=== PATIENT | female | born 1945 | race Hispanic/Latino ===

== ENCOUNTER 2018-11-02 05:43 | Day surgery (SDC) | payer MEDICARE ==
[~2018-11-02] VITALS: Ht 149.9 cm; Wt 64.8 kg
[2018-11-02] MEDS ORDERED: SODIUM CHLORIDE 0.9% 1000ML 1,000 ML IV ONE (05:59)
[2018-11-02] MEDS ORDERED: AMIT25TA9 PO (07:24)
[2018-11-02] MEDS ORDERED: EZET10TA48 PO (07:24)
[2018-11-02] MEDS ORDERED: LIOT5TAB8 PO (07:24)
[2018-11-02] MEDS ORDERED: ROSU40TA20 PO (07:24)
[2018-11-02] MEDS ORDERED: PIOG15TA66 PO (07:24)
[2018-11-02] MEDS ORDERED: ASPI-555 PO (07:24)
[2018-11-02] MEDS ORDERED: METO50TA18 PO (07:24)
[2018-11-02] MEDS ORDERED: METF-446 PO (07:24)
[2018-11-02] MEDS ORDERED: VIT D2 (07:24)
[2018-11-02] MEDS ORDERED: PROAIR (07:24)
[2018-11-02] MEDS ORDERED: MAGN400T25 PO (07:24)
[2018-11-02] MEDS ORDERED: VALS1TAB79 PO (07:24)
[2018-11-02] MEDS ORDERED: GABA-531 PO (07:24)
[2018-11-02] MEDS ORDERED: PANT40TA25 PO (07:24)
[2018-11-02] MEDS ORDERED: VICTOZA PO (07:24)
[2018-11-02 07:27] VITALS: BP 128/54
[2018-11-02] MEDS ORDERED: PROPOFOL 10 MG/ML 20ML VIAL IV ONE ×2 (08:06→08:29)
[2018-11-02] MEDS ORDERED: LIDOCAINE HCL 1% 20 ML VIAL ONE (08:07)
[2018-11-02] MEDS ORDERED: EPHEDRINE SULFATE 50 MG/ML AMPULE ONE (08:27)
[2018-11-02 08:34] VITALS: BP 109/55
[2018-11-02 08:38] VITALS: BP 109/55
[2018-11-02 08:44] VITALS: BP 103/55
[2018-11-02 08:49] VITALS: BP 109/61
[2018-11-02 08:57] VITALS: BP 130/67
== END 2018-11-02 09:15 | disposition home or self-care (01) ==
LOC: DAH 05:43
PROVIDERS: ATTEND Internal Medicine Gastroenterology
DX: Z12.11 Encounter for screening for malignant neoplasm of colon (principal); K64.1 Second degree hemorrhoids; K57.30 Diverticulosis of large intestine without perforation or abscess without bleeding; K29.50 Unspecified chronic gastritis without bleeding; I11.0 Hypertensive heart disease with heart failure; I50.9 Heart failure, unspecified; J44.9 Chronic obstructive pulmonary disease, unspecified; I25.10 Atherosclerotic heart disease of native coronary artery without angina pectoris; E03.9 Hypothyroidism, unspecified; E11.9 Type 2 diabetes mellitus without complications; M19.90 Unspecified osteoarthritis, unspecified site; Z98.890 Other specified postprocedural states; Z95.5 Presence of coronary angioplasty implant and graft; Z68.30 Body mass index [BMI] 30.0-30.9, adult; Z79.899 Other long term (current) drug therapy; E78.2 Mixed hyperlipidemia
CPT/HCPCS: 43239; 45378; 82948; 88305; 93005; A4606; J2704; J3490; J7030

== ENCOUNTER → 2018-11-23 | Outpatient (CLI) | payer MEDICARE ==
[~2018-11-23] MED LIST: AMIT25TA9 PO; ASPI-555 PO; EZET10TA48 PO; GABA-531 PO; LIOT5TAB9 PO; MAGN400T25 PO; METF-446 PO; METO50TA18 PO; PANT40TA25 PO; PIOG15TA66 PO; PROAIR; ROSU40TA21 PO; VALS1TAB79 PO; VICTOZA PO; VIT D2
--- NOTE | 2018-11-23 12:53 | NUR ---
MBSS COMPLETE. -S/S OF ASPIRATION. RECOMMEND REGULAR, THIN LIQUID DIET; PILLS WHOLE WITH LIQUIDS. PATIENT INFORMATION: Pt IS A 73 Y.O. FEMALE REFERRED FOR AN MBSS. Pt AAOX3 AND SERVED THE PRIMARY INFORMANT FOR MEDICAL AND SOCIAL HISTORY. Pt DESCRIBES SWALLOWING DIFFICULTY FOOD GETTING STUCK POINTING TO THE LEVEL OF THE ESOPHAGUS. Pt DESCRIBED BOLUS SENSATION. Pt HAS A PAST MEDICAL HISTORY SIGNIFICANT FOR CHOLECYSTECTOMY, CABG (2011), HEART STENTS, ANXIETY, HEART MURMUR, HEART FAILURE, CAD, HEARING AIDS, HYPERLIPIDEMIA, HYPERTENSION, ASTHMA, COPD, ARTHRITIS, DM. MBSS INTERPRETATION: SWALLOW FUNCTION AND EFFICIENCY WITHIN FUNCTIONAL LIMITS. ORAL MOTOR STRENGTH, COORDINATION, AND ROM WITHIN FUNCTIONAL LIMITS. LARYNGEAL ELEVATION/EXCURSION STRONG WITH TIMELY PHARYNGEAL RESPONSE. NO OVERT SIGNS OR SYMPTOMS OF ASPIRATION PRESENT DURING MBSS. A-P VIEW: UNREMARKABLE. BOLUS TRANSIT TIME OF 10 SECONDS WITH NO STASIS OF BOLUS IN ESOPHAGUS. MINIMAL RESIDUE NOTED IN MID 1/3 OF ESOPHAGUS CLEARED WITH LIQUID WASH. PLEASE NOTE THAT Pt COMPLAINED OF BOLUS SENSATION DURING TRIALS. TRIALS: 1. TSP PUREED: GOOD 2. TSP PUDDING: GOOD 3. TSP MIXED: GOOD 4. CUP SIP THIN LIQUIDS: GOOD 5. A-P PUDDING: GOOD 6. A-P THIN LIQUIDS: GOOD RECOMMENDATIONS: 1. REGULAR TEXTURE, THIN LIQUID DIET; PILLS WHOLE WITH LIQUIDS. 2. COMPENSATORY STRATEGIES (PROPHYLAXIS): *SEATED AT 90 DEGREE ANGLE *ALTERNATE BITES AND SIPS *REMAIN UPRIGHT 30 MINUTES AFTER MEAL TIMES G-CODES SWALLOWING: [id number] Addendum: 11/23/18 at 1258 by PADMA HSU Amended: Links added.
== END | disposition home or self-care (01) ==
LOC: RAH 10:40
PROVIDERS: ATTEND Internal Medicine Gastroenterology
DX: R13.12 Dysphagia, oropharyngeal phase (principal); R63.3 Feeding difficulties; I25.10 Atherosclerotic heart disease of native coronary artery without angina pectoris; E78.5 Hyperlipidemia, unspecified; I11.0 Hypertensive heart disease with heart failure; I50.9 Heart failure, unspecified; J45.909 Unspecified asthma, uncomplicated; J44.9 Chronic obstructive pulmonary disease, unspecified; E11.9 Type 2 diabetes mellitus without complications
CPT/HCPCS: G8996; G8997; G8998; 74230; 92611

== ENCOUNTER → 2021-09-27 | Outpatient (CLI) | payer MEDICARE ==
[~2021-09-27] MED LIST changes: -ASPI-555 PO; +ASPI-556 PO; +LIOT5TAB11 PO; -LIOT5TAB9 PO; -PANT40TA25 PO; +PANT40TA54 PO; -VALS1TAB79 PO; +VALS1TAB80 PO
== END | disposition home or self-care (01) ==
LOC: RAH 10:31
PROVIDERS: ATTEND Family Medicine
DX: S09.90XA Unspecified injury of head, initial encounter (principal); I67.82 Cerebral ischemia; R42 Dizziness and giddiness; R90.82 White matter disease, unspecified; M54.81 Occipital neuralgia; H53.9 Unspecified visual disturbance
CPT/HCPCS: 70551

== ENCOUNTER 2022-07-01 05:52 | Observation (INO) | payer MEDICARE ==
[2022-06-30 10:29] LABS: BASOPHILS % (AUTO) 0.7 % (0.0-5.0); HEMATOCRIT 40.7 % (36-48); LYMPHOCYTES % (AUTO) 37.5 % (21.0-51.0); MEAN CORPUSCULAR HEMOGLOBIN 26.8 pg (27.0-33.0); MEAN CORPUSCULAR VOLUME 86.4 fL (79-99); MONOCYTES % (AUTO) 8.7 % (3.0-13.0); NEUTROPHILS % (AUTO) 51.8 % (40.0-77.0); PLATELET COUNT (AUTO) 165 K/uL (130-400); RED BLOOD CELL COUNT(AUTO) 4.71 MIL/uL (4.00-5.50); RED CELL DISTRIBUTION WIDTH 16.8 % (11.0-15.5)
[2022-06-30 10:37] LABS: CREATININE 0.7 mg/dL (0.5-1.5); POTASSIUM 3.4 mmol/L (3.5-5.1)
[2022-06-30 10:42] LABS: INR 1.05 (0.85-1.15); PROTHROMBIN TIME 11.4 SEC (9.6-11.6)
[2022-06-30 10:44] LABS: PARTIAL THROMBOPLASTIN TIME 30.6 SEC (26.3-35.5)
[2022-06-30 12:48] LABS: LYMPHOCYTES % (MANUAL) 29 % (22-44); MAN.DIFF COMMENT-IMPRESSION MANUAL DIFFERENTIAL; MONOCYTES % (MANUAL) 4 % (2-9); PLATELET MORPHOLOGY COMMENT ADEQUATE; SEGMENTED NEUTROPHILS % 67 % (40-70)
[2022-06-30 15:02] VITALS: BP 144/69
[2022-07-01] VITALS (24 sets, daily range): BP systolic 90–123; BP diastolic 48–77
[~2022-07-01] VITALS: Ht 149.9 cm; Wt 66.8 kg
[~2022-07-01 05:52] MED LIST changes: -AMIT25TA9 PO; -GABA-531 PO; +LACTATED RINGERS 1000ML 1,000 ML IV SCH; -MAGN400T25 PO; +NIAC-48 PO; -PANT40TA54 PO; -PIOG15TA66 PO; +PIOG45TA64 PO; -PROAIR; +ROPI0.257 PO; -VALS1TAB80 PO; +VALS1TAB81 PO; -VICTOZA PO; -VIT D2; +victoza SQ; +vitamin d PO
[2022-07-01] MEDS ORDERED: CEFAZOLIN SODIUM 1 GM VIAL IVPB SCH (06:00)
[2022-07-01] MEDS ORDERED: 0.9%NACL 1000ML 1,000 ML IV ONE (06:29)
[2022-07-01] MEDS ORDERED: LIDOCAINE PF 100MG/5ML (2%) SYRINGE 5ML ONE (07:09)
[2022-07-01] MEDS ORDERED: ROCURONIUM 10MG/1ML SYR 10 MG/ML ML ONE (07:10)
[2022-07-01] MEDS ORDERED: PROPOFOL 10 MG/ML 20ML VIAL IV ONE (07:10)
[2022-07-01] MEDS ORDERED: MIDAZOLAM HCL 1 MG/ML 2ML VIAL ONE (07:10)
[2022-07-01] MEDS ORDERED: FENTANYL CITRATE PF 50 MCG/1 ML 2ML VIAL ONE ×2 (07:10→08:06)
[2022-07-01] MEDS ORDERED: DEXAMETHASONE SOD PHOSPHATE 10MG/ML 1ML VIAL ONE (07:33)
[2022-07-01] MEDS ORDERED: ONDANSETRON 4MG INJ ONE (07:33)
[2022-07-01] MEDS ORDERED: CEFAZOLIN SODIUM 2 GM VIAL IVPB ONE (07:38)
[2022-07-01] MEDS ORDERED: EPHEDRINE SULFATE 50 MG/ML AMPULE ONE (07:40)
[2022-07-01] MEDS ORDERED: ROPIVICAINE 250MG+KETOROLAC 15MG+EPINEPHRINE 0.3+CLONIDINE 80 IV PRN ×5 (08:00)
[2022-07-01] MEDS ORDERED: KETOROLAC 30MG VIAL (30MG/ML) ONE (08:34)
[2022-07-01] MEDS ORDERED: NON-FORMULARY MEDICATION 1 EACH (Metformin HCl 1,000 MG) PO SCH (09:00)
[2022-07-01] MEDS: LOSARTAN/HYDROCHLOROTHIAZIDE 50-12.5MG TABLET PO SCH (09:00)
[2022-07-01] MEDS: PIOGLITAZONE 45MG TAB PO SCH (09:00)
[2022-07-01] MEDS: METOPROLOL TARTRATE 50 MG TAB PO SCH (09:00)
[2022-07-01] MEDS: VICTOZA 1.8 MG SQ SCH (09:00)
[2022-07-01] MEDS: EZETIMIBE 10 MG TAB PO SCH (09:00)
[2022-07-01] MEDS: LIOTHYRONINE SODIUM 5 MCG PO SCH (09:00)
[2022-07-01] MEDS ORDERED: POTASSIUM CHLORIDE 20MEQ/100ML 100 ML IV PRN (09:30)
[2022-07-01] MEDS ORDERED: KCL 20 MEQ ERTAB PO PRN (09:30)
[2022-07-01] MEDS ORDERED: MORPHINE 4 MG SYG IVP PRN (09:30)
[2022-07-01] MEDS ORDERED: ONDANSETRON 4MG INJ IVP PRN (09:30)
[2022-07-01] MEDS ORDERED: LIDOCAINE HCL-MPF 1% 2ML VIAL IV PRN (09:30)
[2022-07-01] MEDS ORDERED: POTASSIUM CHLORIDE 10% ELIXIR 20 MEQ/15 ML UDCUP PO PRN (09:30)
[2022-07-01] MEDS: ACETAMINOPHEN 1,000 MG/100 ML VIAL IV SCH ×2 (09:58→17:36)
[2022-07-01] MEDS: 0.9%NACL 1000ML 1,000 ML IV SCH ×2 (10:57→19:30)
[2022-07-01] MEDS: INSULIN HUMULIN R 100 UNIT/ML 3ML SQ SCH ×3 (11:00→20:56)
[2022-07-01] MEDS ORDERED: IBUPROFEN 800MG + NS 250ML IV SCH (12:30)
[2022-07-01] MEDS: CALDOLOR 800MG+NS 250ML 250 ML IV SCH ×2 (12:39→20:57)
[2022-07-01] MEDS: CEFAZOLIN SODIUM 1 GM VIAL IVP SCH ×2 (14:41→22:29)
[2022-07-01] MEDS: METFORMIN HCL 500 MG TABLET PO SCH (17:36)
[2022-07-01] MEDS: ASPIRIN 81 MG EC TAB PO SCH (17:36)
[2022-07-01] MEDS: ROPINIROLE HCL 0.25 MG TABLET PO SCH (20:56)
[2022-07-01] MEDS: FAMOTIDINE 20MG TAB PO SCH (20:56)
[2022-07-01] MEDS: NIACIN 500 MG SRTAB PO SCH (21:00)
[2022-07-02] VITALS (7 sets, daily range): BP systolic 93–143; BP diastolic 41–67
[2022-07-02] MEDS: ACETAMINOPHEN 1,000 MG/100 ML VIAL IV SCH (00:20)
[2022-07-02] MEDS: CALDOLOR 800MG+NS 250ML 250 ML IV SCH (05:21)
[2022-07-02] MEDS: 0.9%NACL 1000ML 1,000 ML IV SCH (05:30)
[2022-07-02 05:50] LABS: CREATININE 0.8 mg/dL (0.5-1.5)
[2022-07-02] MEDS: INSULIN HUMULIN R 100 UNIT/ML 3ML SQ SCH ×4 (06:50→21:00)
[2022-07-02] MEDS: HYDROCODONE/ACETAMINOPHEN 10/325 MG TAB PO PRN ×3 (06:52→18:03)
[2022-07-02 07:33] LABS: HEMATOCRIT 28.6 % (36-48); MEAN CORPUSCULAR HEMOGLOBIN 26.7 pg (27.0-33.0); MEAN CORPUSCULAR HGB CONC 30.8 g/dL (32.0-36.0); MEAN CORPUSCULAR VOLUME 86.9 fL (79-99); RED BLOOD CELL COUNT(AUTO) 3.29 MIL/uL (4.00-5.50); RED CELL DISTRIBUTION WIDTH 17.2 % (11.0-15.5); WHITE BLOOD COUNT (AUTO) 5.4 K/uL (4.8-10.8)
[2022-07-02] MEDS: LIOTHYRONINE SODIUM 5 MCG PO SCH (08:00)
[2022-07-02] MEDS: VICTOZA 1.8 MG SQ SCH (08:00)
[2022-07-02] MEDS: LOSARTAN/HYDROCHLOROTHIAZIDE 50-12.5MG TABLET PO SCH (08:58)
[2022-07-02] MEDS: EZETIMIBE 10 MG TAB PO SCH (08:59)
[2022-07-02] MEDS: METOPROLOL TARTRATE 50 MG TAB PO SCH (09:00)
[2022-07-02] MEDS: PIOGLITAZONE 45MG TAB PO SCH ×2 (09:00→15:51)
[2022-07-02] MEDS: POLYETHYLENE GLYCOL 3350 17 GM POWD.PACK PO SCH (09:02)
[2022-07-02] MEDS: METFORMIN HCL 500 MG TABLET PO SCH ×2 (09:02→18:00)
[2022-07-02] MEDS: FAMOTIDINE 20MG TAB PO SCH ×2 (09:02→21:03)
[2022-07-02] MEDS: ASPIRIN 81 MG EC TAB PO SCH ×2 (09:03→18:00)
[2022-07-02] MEDS: FERROUS GLUCONATE 324 TABLET PO SCH ×2 (12:56→21:03)
[2022-07-02] MEDS ORDERED: FERROUS GLUCONATE 324 TABLET PO SCH (21:00)
[2022-07-02] MEDS: NIACIN 500 MG SRTAB PO SCH (21:03)
[2022-07-02] MEDS: ROPINIROLE HCL 0.25 MG TABLET PO SCH (21:03)
[2022-07-03] VITALS: BP 138/60
[2022-07-03] MEDS: HYDROCODONE/ACETAMINOPHEN 10/325 MG TAB PO PRN (03:32)
[2022-07-03 04:00] VITALS: BP 142/82
[2022-07-03] MEDS: INSULIN HUMULIN R 100 UNIT/ML 3ML SQ SCH ×3 (05:22→16:03)
[2022-07-03] MEDS: HYDROCODONE/ACETAMINOPHEN 5/325 MG TAB PO PRN ×2 (07:30→13:49)
[2022-07-03 08:00] VITALS: BP 122/53
[2022-07-03] MEDS: FERROUS GLUCONATE 324 TABLET PO SCH (08:44)
[2022-07-03] MEDS: FAMOTIDINE 20MG TAB PO SCH (08:45)
[2022-07-03] MEDS: METFORMIN HCL 500 MG TABLET PO SCH (08:45)
[2022-07-03] MEDS: METOPROLOL TARTRATE 50 MG TAB PO SCH (08:45)
[2022-07-03] MEDS: EZETIMIBE 10 MG TAB PO SCH (08:45)
[2022-07-03] MEDS: ASPIRIN 81 MG EC TAB PO SCH (08:45)
[2022-07-03] MEDS: LOSARTAN/HYDROCHLOROTHIAZIDE 50-12.5MG TABLET PO SCH (08:49)
[2022-07-03] MEDS: VICTOZA 1.8 MG SQ SCH (08:50)
[2022-07-03] MEDS: POLYETHYLENE GLYCOL 3350 17 GM POWD.PACK PO SCH (08:50)
[2022-07-03] MEDS: LIOTHYRONINE SODIUM 5 MCG PO SCH (08:51)
[2022-07-03] MEDS: PIOGLITAZONE 45MG TAB PO SCH (09:00)
[2022-07-03 12:00] VITALS: BP 128/70
[2022-07-03 16:00] VITALS: BP 117/53
[2022-07-04] MEDS ORDERED: BISACODYL 10 MG SUPP.RECT RC PRN (09:30)
== END 2022-07-03 16:48 ==
LOC: DAH 05:52 → DAHIP 05:53 → 3DH 10:29
PROVIDERS: ADMIT Orthopaedic Surgery; ATTEND Orthopaedic Surgery
DX: M17.11 Unilateral primary osteoarthritis, right knee (principal); Z20.822 Contact with and (suspected) exposure to COVID-19; E11.9 Type 2 diabetes mellitus without complications; I10 Essential (primary) hypertension; I25.2 Old myocardial infarction; Z79.899 Other long term (current) drug therapy
CPT/HCPCS: 80048 ×2; 85025; 85610; 85730; 87426; 36415 ×2; 87641; 27447; 0055T; 96376 ×2; 96365; 96366 ×3; 96375 ×3; 82948 ×11; 97039 ×4; 85027; 93971; 97161; 97116 ×4; 97530; A6260; C1776 ×4; G0378 ×54; A4663; J7030 ×3; A4649 ×4; J3010 ×2; J0690 ×4; J1100; J2001; J3490; J2250; J2704; J2405 ×2; J1885; J1741; G0168; A6255; A6254; A5120; A4215 ×2; A4223; A4222; A4221; J2270

== ENCOUNTER 2023-12-24 11:24 | Emergency (ER) | payer OTHER ==
[~2023-12-24] VITALS: Ht 144.8 cm; Wt 64.4 kg
[~2023-12-24 11:24] MED LIST changes: -LACTATED RINGERS 1000ML 1,000 ML IV SCH; +ROPI0.2535 PO; -ROPI0.257 PO; -ROSU40TA21 PO; +ROSU40TA70 PO
[2023-12-24] MEDS: POTASSIUM BICARB/CIT AC 25 MEQ TABLET.EFF PO ONE ×2 (12:10→14:30)
[2023-12-24 14:17] LABS: POTASSIUM 3.2 mmol/L (3.5-5.1)
[2023-12-24 14:35] VITALS: BP 140/67; PULSE 67; RESP 17; O2SAT 100
[2023-12-24] MEDS ORDERED: GABA300C PO (15:26)
[2023-12-24] MEDS ORDERED: ERGO500093 PO (15:26)
[2023-12-24] MEDS ORDERED: ROPI0.5T37 PO (15:26)
[2023-12-24] MEDS ORDERED: METF-444 PO (15:26)
== END 2023-12-24 15:00 | disposition home or self-care (01) ==
LOC: EDH 11:24
DX: E87.6 Hypokalemia (principal); E11.9 Type 2 diabetes mellitus without complications; E78.00 Pure hypercholesterolemia, unspecified; I10 Essential (primary) hypertension; Z79.899 Other long term (current) drug therapy; Z90.49 Acquired absence of other specified parts of digestive tract; Z98.890 Other specified postprocedural states
CPT/HCPCS: 36415; 80048

== ENCOUNTER 2023-12-25 07:01 | Day surgery (SDC) | payer OTHER ==
[2023-12-24 10:42] VITALS: BP 143/71; PULSE 71; RESP 16
[2023-12-24 10:50] LABS: BASOPHILS # (AUTO) 0.01 K/uL (0.00-0.20); BASOPHILS % (AUTO) 0.3 % (0.0-5.0); EOSINOPHILS # (AUTO) 0.04 K/uL (0.00-0.70); EOSINOPHILS % (AUTO) 1.1 % (0.0-8.0); LYMPHOCYTES % (AUTO) 25.7 % (21.0-51.0); MEAN CORPUSCULAR HEMOGLOBIN 30.5 pg (27.0-33.0); MEAN CORPUSCULAR HGB CONC 33.8 g/dL (32.0-36.0); MEAN CORPUSCULAR VOLUME 90.3 fL (79-99); MONOCYTES # (AUTO) 0.3 K/uL (0.1-1.0); MONOCYTES % (AUTO) 8.4 % (3.0-13.0); NEUTROPHILS # (AUTO) 2.4 K/uL (1.8-7.7); NEUTROPHILS % (AUTO) 64.5 % (40.0-77.0); PLATELET COUNT (AUTO) 171 K/uL (130-400); RED BLOOD CELL COUNT(AUTO) 4.43 MIL/uL (4.00-5.50); RED CELL DISTRIBUTION WIDTH 13.2 % (11.0-15.5); WHITE BLOOD COUNT (AUTO) 3.7 K/uL (4.8-10.8)
[2023-12-24 10:53] LABS: APPEARANCE,URINE CLOUDY (CLEAR); BILIRUBIN,URINE NEGATIVE (NEGATIVE); COLOR,URINE YELLOW (YELLOW); GLUCOSE, URINE (UA) NEGATIVE (NEGATIVE); KETONES,URINE NEGATIVE (NEGATIVE); LEUKOCYTE ESTERASE ,URINE 500 Leu/uL (NEGATIVE); NITRATE,URINE NEGATIVE (NEGATIVE); OCCULT BLOOD,URINE MODERATE (NEGATIVE); PROTEIN,URINE 100 mg/dL (NEGATIVE)
[2023-12-24 10:54] LABS: ADD UA MICROSCOPIC YES
[2023-12-24 10:57] LABS: CREATININE 1.2 mg/dL (0.5-1.0)
[2023-12-24 10:58] LABS: BACTERIA,URINE FEW /HPF (None Seen); MUCUS,URINE RARE LPF (None Seen); SQUAMOUS EPITHELIAL CELL,UR MOD /HPF (0-2); TRANSITIONAL EPI CELLS,URINE FEW /HPF (None Seen)
[2023-12-24 11:01] LABS: POTASSIUM 2.6 mmol/L (3.5-5.1)
[2023-12-24 11:04] LABS: INR 1.05 (0.85-1.15); PROTHROMBIN TIME 11.3 SEC (9.6-11.6)
[2023-12-24 11:20] LABS: B-TYPE NATRIURETIC PEPTIDE 287 pg/mL (0-100)
[~2023-12-25] VITALS: Ht 144.8 cm; Wt 65.2 kg
[2023-12-25] VITALS (11 sets, daily range): BP systolic 111–131; BP diastolic 54–68; PULSE 58–70; RESP 11–19
[~2023-12-25 07:01] MED LIST changes: +ERGO500093 PO; -EZET10TA48 PO; +GABA300C PO; +METF-444 PO; -METF-446 PO; -NIAC-48 PO; -PIOG45TA64 PO; -ROPI0.2535 PO; +ROPI0.5T37 PO; -victoza SQ; -vitamin d PO
[2023-12-25] MEDS ORDERED: LIDOCAINE HCL 400MG/20ML VIAL ONE ×2 (07:20→09:40)
[2023-12-25] MEDS ORDERED: NITROGLYCERIN 50MG VIAL ONE ×2 (07:20→09:49)
[2023-12-25] MEDS ORDERED: IOHEXOL 350 MG/ML 100ML INFUS..BTL IV ONE ×2 (07:21→09:41)
[2023-12-25] MEDS ORDERED: SODIUM BICARB 50MEQ 50ML VIAL 0 ML ONE (07:21)
[2023-12-25 07:42] LABS: POTASSIUM 4.1 mmol/L (3.5-5.1)
[2023-12-25 07:49] LABS: ALBUMIN 3.8 g/dL (3.5-5.0); BILIRUBIN,TOTAL 0.5 mg/dL (0.2-1.0); TOTAL PROTEIN, SERUM 7.2 g/dL (6.0-8.3)
[2023-12-25] MEDS: 0.9%NACL 1000ML 1,000 ML IV ONE (08:05)
[2023-12-25] MEDS ORDERED: MIDAZOLAM HCL 1 MG/ML 2ML VIAL ONE (09:41)
[2023-12-25] MEDS ORDERED: SODIUM BICARB 50MEQ 50ML VIAL 50 ML ONE (09:41)
[2023-12-25] MEDS ORDERED: MEPERIDINE-PF 25 MG/ML SYG ONE (09:41)
[2023-12-25] MEDS ORDERED: HEPARIN 10,000 UNIT/10ML (1,000 UNIT/ML) VIAL ONE (09:42)
[2023-12-25] MEDS ORDERED: IOHEXOL-350 50ML VIAL IV ONE (09:43)
[2023-12-25] MEDS: 0.9%NACL 1000ML 1,000 ML IV SCH (11:25)
[2023-12-25] MEDS: acetaMINOPHEN 500 MG TABLET PO ONE (14:17)
== END 2023-12-25 16:40 | disposition home or self-care (01) ==
LOC: DAH 07:01
PROVIDERS: ATTEND Internal Medicine Cardiovascular Disease
DX: I25.118 Atherosclerotic heart disease of native coronary artery with other forms of angina pectoris (principal); I11.0 Hypertensive heart disease with heart failure; I50.42 Chronic combined systolic (congestive) and diastolic (congestive) heart failure; E11.40 Type 2 diabetes mellitus with diabetic neuropathy, unspecified; J44.9 Chronic obstructive pulmonary disease, unspecified; K21.9 Gastro-esophageal reflux disease without esophagitis; G47.33 Obstructive sleep apnea (adult) (pediatric); Z95.1 Presence of aortocoronary bypass graft; E78.5 Hyperlipidemia, unspecified; E66.9 Obesity, unspecified; E03.9 Hypothyroidism, unspecified; G43.909 Migraine, unspecified, not intractable, without status migrainosus; Z99.89 Dependence on other enabling machines and devices; Z98.49 Cataract extraction status, unspecified eye; Z79.899 Other long term (current) drug therapy
CPT/HCPCS: 80048; 83880; 85025; 85610; 85730; 87086; 81001; 36415 ×2; 93005; 93459; 93567; 80053; 82948 ×2; 71045; C1894; C1760; Q9965 ×2; J3490 ×3; J7030; J2250; J2175; J1644; Q9967 ×3; A4215; A4222; A4221; A4663; A4216; A4335; A4606; A4223 ×3; 93461; 99156; 99157